=== PATIENT | male | born 1950 | race Caucasian/White ===

== ENCOUNTER → 2023-05-08 11:54 | Outpatient (CLI) | payer OTHER, SELFPAY ==
[2023-05-08 13:16] LABS: Appearance Urine UA CLEAR; Bilirubin Urine UA NEGATIVE (NEGATIVE); Color Urine UA ORANGE; Glucose Urine UA NEGATIVE (Negative); Ketones Urine UA TRACE (NEGATIVE); Leukocyte Esterase Urine UA NEGATIVE (NEGATIVE); Nitrite Urine UA NEGATIVE (Negative); Occult Blood Urine UA NEGATIVE (Negative); Protein Urine UA NEGATIVE (Negative); Specific Gravity Urine UA >=1.030 (1.000-1.035); Urobilinogen Urine UA 0.2 E.U./dL (0.2)
[2023-05-08 13:19] LABS: Add Manual Diff / Slide Review NO; Basophils Absolute Auto 0 /uL (0-100); Basophils Percent Auto 0.9 % (0-2); Eosinophils Absolute Auto 300 /uL (0-450); Eosinophils Percent Auto 6.2 % (2-4); Hemoglobin 15.8 g/dL (13.5-17.5); Lymphocytes Absolute Auto 1700 /uL (1100-4500); Lymphocytes Percent Auto 34.5 % (25-40); Mean Corpuscular HGB Conc 33.6 % (30-36); Mean Corpuscular Hemoglobin 33.3 PG (26-34); Monocytes Absolute Auto 400 /uL (0-900); Monocytes Percent Auto 8.7 % (3-14); Neutrophils Absolute Auto 2400 /uL (1500-7000); Neutrophils Percent Auto 49.7 % (50-75); Platelet Count 175 X10^3/uL (150-400); Red Blood Cell Count 4.75 X10^6/uL (4.5-5.9); Red Cell Distribution Width 13.7 % (11.6-14.8); White Blood Cell Count 4.8 X10^3/uL (4.5-11.0)
[2023-05-08 13:26] LABS: Bacteria Urine None Seen; Calcium Oxalate Crystals Urine Moderate; Culture Indicated Urine Cult Not Indicated; Mucus Urine 2+ (Negative); RBC Urine None Seen (0-5/HPF); Squamous Epithelial Cell Urine None Seen (0-5/HPF); WBC Urine None Seen (0-5/HPF)
[2023-05-08 13:42] LABS: BUN Creatinine Ratio 27.8 (6-22); Blood Urea Nitrogen 22 mg/dL (9-20); Calcium 9.3 mg/dL (8.4-10.2); Carbon Dioxide 29 mmol/L (22-32); Chloride 101 mmol/L (98-107); Estimated Glomerular Filt Rate > 60 mL/min (>60); Glucose 97 mg/dL (80-110); HEMOLYSIS < 15 (0-50); Potassium 4.2 mmol/L (3.4-5.1); Sodium 139 mmol/L (137-145)
[2023-05-08 13:45] LABS: Hemoglobin A1C% w Est Avg Glu 5.2 % (4.0-6.0)
== END ==
LOC: LAB 12:01
PROVIDERS: PCP Physician Assistant; Referring Provider Orthopaedic Surgery; Visit Provider Orthopaedic Surgery
DX: Z01.818 Encounter for other preprocedural examination (principal); R73.9 Hyperglycemia, unspecified; Z01.812 Encounter for preprocedural laboratory examination; N39.0 Urinary tract infection, site not specified
CPT/HCPCS: 36415; 80048; 81001; 83036; 85025; 93005; 93010

== ENCOUNTER 2023-05-29 11:15 | Day surgery (SDC) | payer OTHER, SELFPAY ==
[2023-05-21 12:41] VITALS: BMI 33.9
[2023-05-29] VITALS (8 sets, daily range): BP systolic 116–159; BP diastolic 76–97; PULSE 73–84; RESP 12–16; TEMP 35.6–36.4; O2SAT 93–100; BMI 33.9
[2023-05-29] MEDS: ACETAMINOPHEN 325 MG TABLET 1000 MG PO (12:30)
[2023-05-29] MEDS: LACTATED RINGERS 1,000 ML 42 ML IV ×2 (12:31→15:40)
[2023-05-29] MEDS: CELECOXIB 200 MG CAPSULE PO (12:31)
[2023-05-29] MEDS: VANCOMYCIN 1,000 MG/200 ML PIGGYBACK 200 MG IV (12:31)
--- NOTE | 2023-05-29 14:00 | DI.RAD.S_ITS ---
PROCEDURE: XR PELVIS 1-2V INDICATIONS: RIGHT INNER OP HIP TECHNIQUE: Single AP view of the pelvis and hip acquired. COMPARISON: [facility], CR, XR HIP W PEL IF DONE RT 2V, 05/29/2023, 16:39. FINDINGS: Bones: Status post right total hip arthroplasty. No acute hardware complication visualized on this single view. Surgical equipment project over the left hip and pelvis. Soft tissues: There are soft tissue changes of surgical procedure. IMPRESSION: Status post right total hip arthroplasty. No obvious hardware complication identified on this single AP view. Dictated by: Payam Ascencio M.D. on 05/29/2023 at 18:26 Approved by: Payam Ascencio M.D. on 05/29/2023 at 18:28
--- NOTE | 2023-05-29 14:10 | PM.PREOP ---
Pre-operative Note Interval Note History & Physical reviewed/Exam performed by Physician: Yes Changes to H&P: No
--- NOTE | 2023-05-29 14:27 | P.OP_ITS ---
Operative Date/Time/Diagnoses Date of procedure: 05/29/23 Time of procedure: 14:30 Pre-op diagnosis: Right hip OA Post-op diagnosis: same Procedure & Clinicians Procedure: Right total hip arthroplasty posterior approach Same procedure as scheduled: Yes Indications: The patient has had progressively worsening right hip pain with radiographic changes consistent with arthritis. Non-operative management has failed and the patient has requested total hip replacement. The risks, benefits and alternatives to surgery were discussed with the patient prior to proceeding. Risks discussed included, but were not limited to, failure to relieve pain, leg length discrepancy, dislocation, stiffness, infection, nerve damage, deep venous thrombosis, pulmonary embolism, stroke, coma, heart attack, permanent paralysis and , as well as the potential need for eventual revision of the prosthetic. Surgeon: [employer] Learning [employer] Teacher: Vinayak Mock Anesthesia Type: General and Spinal Operative Notes Findings: Severe right hip osteoarthritis, adequate stability, adequate bone Closure Type: primary Specimen(s): none sent Prosthetic devices, grafts, tissues, transplants, or devices: [employer] R3 58 mm, neutral poly liner, polar size 4 standard offset with collar, 36 x +0 cobalt head,one 6.5 mm screw Estimated Blood Loss (mL): 250 Blood products transfused: none Procedure in detail: The patient was seen in the pre-operative area, where the patient identified the right hip as the operative site and this was marked with my initials. The patient received pre-operative antibiotics and was taken to the operating room and placed on the operative table in the left lateral decubitus position after satisfactory anesthesia. A machine shop helper out was performed. The right leg was prepared from the ankle to the iliac crest with ChloroPrep in the usual fashion and draped through sterile drapes. The hip was approached through an approximately 20 cm incision centered over the greater trochanter and curving gently posteriorly as it went proximally. This was carried sharply to the fascia ryan, which was divided and retracted with a self retaining retractor. The trochanteric bursa was excised with care being taken to avoid the sciatic nerve, which was identified and protected throughout the case. The short external rotators were incised and the capsulomuscular flap was raised and tagged for later repair. The hip was dislocated, and a femoral neck osteotomy performed approximately 15 mm above the lesser trochanter. Retractors were placed around the femur. The canal was opened with a box cutting osteotome, followed by a T handled reamer and a lateralizing reamer. The chili pepper broach was then used, followed by sequential broaching until there was good stability of the broach in the femur. Retractors were placed to expose the acetabulum. The labrum and central soft tissues were removed. Reaming was performed initially going up in 2 mm increments, then 1 mm increments until good bite was obtained with an odd sized reamer. The cup 1 mm larger than the last reamer was then inserted using the appropriate anteversion guides. It was further stabilized with a single screw. A trial neutral liner was placed. The broach was placed in the canal. A trial head and neck were then placed and the hip relocated and checked for leg length and stability. An intraoperative film confirmed the component position and no evidence of fracture. The patient was stable in the position of sleep, of squatting, and could be put through a range of motion with 45 degrees internal rotation without dislocation. At 90 degrees flexion, internal rotation to 70? was possible before dislocation. This was felt to be satisfactory and the appropriate components were opened, and the trials were removed. The acetabular liner was impacted into position. The final stem was then impacted into the prepared femoral canal. A brief Betadine soak was performed while trialing with head options. The hip was meticulously irrigated with normal saline. Finally the femoral head was impacted onto the stem. The acetabulum was cleared of all material and the hip relocated one final time. The capsulomuscular flap was then repaired to the greater trochanter though an awl hole using the tag sutures. The short external rotators were repaired with a nonabsorbable suture. The fascia ryan was closed with Vicryl. The subcutaneous layer was closed with barbed sutures and SteriStrips. An Aquacel Ag dressing was applied and the patient was taken to recovery having tolerated the procedure well. Complications: none Post-operative Condition: stable Disposition: Acute Care Plan for aftercare: The patient will be maintained on a standard total hip replacement protocol with weight bearing as tolerated and posterior hip precautions. The patient will receive Aspirin and sequential compression devices for DVT prophylaxis. The patient will be discharged home when safe for the home environment.
[2023-05-29] MEDS: CEFAZOLIN 2 GM/100 ML PREMIX 100 ML IV ×2 (14:50→22:08)
--- NOTE | 2023-05-29 15:09 | SUR.OPER ---
Lateral on padded OR bed. Gel axillary roll. Arms secured on padded armboard with pillow supporting top arm. Padded hip positioner braces x4 - anterior and posterior chest and pelvis. Additional gel pad used anterior pelvis. Gel pad under bottom leg from knee to foot and secured with tape over sheet.
[2023-05-29] MEDS: BUPIVACAINE LIPOSOME 266 MG/20 ML VIAL INJ (15:22)
[2023-05-29] MEDS: BUPIVACAINE 0.5% (PF) 30 ML, EPINEPHrine 0.15 MG INJ (15:23)
--- NOTE | 2023-05-29 17:00 | DI.RAD.S_ITS ---
PROCEDURE: XR HIP W PEL IF DONE RT 2V INDICATIONS: RIGHT TOTAL HIP TECHNIQUE: AP pelvis with lateral view(s) of the right hip(s). COMPARISON: None. FINDINGS: Bones: Expected immediate appearance of total right hip arthroplasty. No evidence of hardware failure or loosening. No fractures or dislocations. Pelvic ring appears intact. No suspicious bony lesions. Severe degenerative arthritis of the left hip. Question underlying congenitally shallow left acetabulum. Soft tissues: The visualized bowel gas pattern is normal. No suspicious soft tissue calcifications. IMPRESSION: Expected immediate postoperative appearance, status post total right hip arthroplasty. Severe degenerative arthritis of the left hip. Question underlying congenitally shallow left acetabulum. Dictated by: Andres Simpson M.D. on 05/29/2023 at 19:26 Approved by: Andres Simpson M.D. on 05/29/2023 at 19:27
[2023-05-29] MEDS: ASPIRIN EC 81 MG TABLET PO (20:56)
[2023-05-29] MEDS: DOCUSATE 100 MG CAPSULE PO (20:57)
[2023-05-29] MEDS: ACETAMINOPHEN 325 MG TABLET 650 MG PO (20:57)
[2023-05-29] MEDS: IBUPROFEN 400 MG TABLET PO (20:57)
[2023-05-29] MEDS: LACTATED RINGERS 1,000 ML 100 ML IV (22:07)
--- NOTE | 2023-05-29 23:16 | PC.NURSE ---
Addendum entered by Robson Guo R.N. 05/30/23 07:33: Patient voided 200ml, post void bladder scan 490ml. Spoke with Apolonia PAC, ordered additional straight cath. Verbalized to oncgeneva hurd RN. Original Note: Patient has no urge to urinate, bladder scan showing 646ml. Tried to stand at edge of bed for trial void, patient's R knee continuing to internally rotate and patient unable to stand up, stating 'feels like it's just not working'. Educated pt on post op precautions. Straight catheter completed.
[2023-05-30 00:11] VITALS: BP 108/64; PULSE 74; RESP 17; TEMP 36.3; O2SAT 92
[2023-05-30 03:26] VITALS: BP 110/65; PULSE 85; RESP 17; TEMP 36.2; O2SAT 97
[2023-05-30 05:11] LABS: Hematocrit 37.8 % (41-53); Hemoglobin 12.7 g/dL (13.5-17.5)
[2023-05-30] MEDS: CEFAZOLIN 2 GM/100 ML PREMIX 100 ML IV (06:38)
[2023-05-30] MEDS: IBUPROFEN 400 MG TABLET PO ×2 (06:50→11:50)
[2023-05-30] MEDS: ACETAMINOPHEN 325 MG TABLET 650 MG PO ×2 (06:50→13:36)
[2023-05-30 08:29] VITALS: BP 99/58; PULSE 64; RESP 18; TEMP 36.9; O2SAT 93
[2023-05-30] MEDS: ASPIRIN EC 81 MG TABLET PO (08:51)
[2023-05-30] MEDS: ATORVASTATIN 20 MG TABLET PO (08:51)
[2023-05-30] MEDS: FLUoxetine 10 MG CAPSULE PO (08:51)
[2023-05-30] MEDS: DOCUSATE 100 MG CAPSULE PO (08:51)
[2023-05-30] MEDS: OXYCODONE IR 5 MG TABLET PO (09:14)
--- NOTE | 2023-05-30 09:14 | PC.NURSE ---
straight cath cancelled, pt was able to void 500cc.
--- NOTE | 2023-05-30 10:00 | PT.IIE ---
Current Diagnoses Unilateral primary osteoarthritis, right hip (05/29/23) Surgery Performed Operation Date: 05/29/23 13:45 Actual Procedures p Total Hip Arthroplasty - posterior(Right) - Kaye Morse MD Surgical History (Last Updated 05/21/23 @ 13:07 by Sarah Tanner, RN) Hx of tonsillectomy Medical History (Last Reviewed 05/29/23 @ 12:16 by Venecia Bahena, DEBRA) Depression GERD (gastroesophageal reflux disease) HLD (hyperlipidemia) Osteoarthritis Physical Therapy Inpatient Evaluation/Re-Eval M1 PT/OT-IP Prior Functional Status Start: 05/30/23 12:09 Freq: NEEDED Status: Active Protocol: Document 05/30/23 10:00 AB (Rec: 05/30/23 12:36 AB [id number]) Medical Review Prior Functional Status Medical History Reviewed Yes Communication able to make needs known Mobility and Gait pt stated that he was independent with all mobilities and ambulation without AD Activities of Daily Living and IADL's per OT note: Pt states needing increased time for ADL and IADL needs. Social History Household Members none Living Arrangements House Number of Floors (Floors) One Floor Number of Stairs To Enter/Railing? pt plans to go to his family's house: home set up is regarding pt's family house 5 steps with right rail ascending Home Environment Standard Height Toilet,Walk in Shower,Tub/Shower Home Equipment Front Wheel Walker,Straight Cane,Raised Toilet Seat Without Armrests,Shower Seat without Backrest Additional Social History Comment pt stated that his BRAD and sister will be able to asisst him M2 PT-IP Current Condition Start: 05/30/23 12:09 Freq: NEEDED Status: Active Protocol: Document 05/30/23 10:00 AB (Rec: 05/30/23 12:36 AB [id number]) Physical Therapy Current Condition Current Condition Evaluation Date 05/30/23 Treatment Diagnosis s/p R ARIA posterior approach; difficulty in walking Onset Date 05/29/23 M3 PT-IP Subjective Start: 05/30/23 12:09 Freq: NEEDED Status: Active Protocol: Document 05/30/23 10:00 AB (Rec: 05/30/23 12:36 AB [id number]) Subjective Physical Therapy Visit Type Type Initial Evaluation Visit Start Time 10:00 Visit Stop Time 11:20 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 0 Physical Therapy Visit Comments Patient Comments agreeable to do PT Therapy Pain Assessment Pain When Pain Assessed At Rest Pain Present Pain Present Pain Reported Location Right Hip Intensity 1 Scale Used Numeric (0 - 10) Pain Management Techniques Distraction,Modification of Treatment,Re-positioning, Timing of Activity with Medications M4 PT-IP Mobility and Gait Start: 05/30/23 12:09 Freq: NEEDED Status: Active Protocol: Document 05/30/23 10:00 AB (Rec: 05/30/23 12:36 AB [id number]) PT-Bed Mobility Assessment Supine to Sit Supine to Sit Standby Assistance PT-Transfer Assessment Sit to and From Stand Sit to and from Stand Contact Guard Assistance, Minimal Assistance,1 Person Assistance,Use of Upper Extremities Equipment Transfer Assistive Device Gait Belt,Front Wheeled Walker Orthotic/Prosthetic Devices or Brace: No Transfers Transfer Destination Bed Transfer Technique ambulated Transfer Ability Level of Assist Contact Guard Assistance, Minimal Assistance,1 Person Assistance,Use of Upper Extremities Comments Mobility Comments pt supine in bed and agreeable to do PT. obtained PLOF and home set up. educated pt on R posterior hip precautions. post-op folder provided and reviewed contents with pt. reviewed precautions again and pt was able to recall. BP: 112/68 pt completed supine to sit SBA and cues for safety. able to sit on EOB SBA. completed sit to stand min A and max cues. instructed pt to sit back down . educated on sit<>stand techniques. pt completed sit to stand again CGA. pt ambulated towards the chair ~ 12 ft using FWW with initial min A but able to complete with only CGA. cued for safety. pt presents with an antalgic gait and pt can be impulsive. pt sat on the chair. educated regarding car transfers. pt agreed to do stairs. completed sit to stand CGA and ambulated towards the stairs using fWW CGA ~ 150 ft. stair climbing training. educated pt on how to do stair climbing. pt completed up/ down step holding on to R rail with B hands CGA and cues. repeated again without cues needed. assisted pt back to the room. with inconsistent with adhereing to his hip precautions. completed sit to stand and needs cues to position RLE forward prior to standing and sitting. ambulated to the chair using FWW CGA. educated pt again regarding hip precautions during mobility. pt instructed to transfer from chair to EOB and back and completed CGA but continues to need cues and inconsistent with carryover with hip precautions. pt sat back on the chair. caregiver training set up for this afternoon at 1pm. Left pt in room with OT. Gait Assessment Gait Gait Assistance Required: Contact Guard Assist,Minimum Assistance Distance (Feet) 150 Able to Maintain Weight Bearing Status Yes During Gait Assistive Devices Assistive Device Gait Belt,Front Wheeled Walker Orthotic/Prosthetic Devices or Brace: No Gait Deviations General Gait Pattern Antalgic,Decreased Stride Length,Decreased Feet Clearance,Step-to Gait Factors Limiting Gait Function Factors Limiting Gait Function Decreased Activity Tolerance, Decreased Strength,Limited Range of Motion,Pain,Poor Balance,Poor Safety Awareness Stair Climbing Assessment Evaluation Level of Assist On Stairs Contact Guard Assistance Devices Stair Climbing Assistive Devices Right Railing Technique/Endurance Stair Climbing Direction Ascend and Descend Stair Climbing Technique Step to Step Number of Steps Climbed 3 Query Text: Stair Climbing Set # Repetitions (reps) 2 PT-Balance Assessment Sitting Balance and Reactions Static Sitting Balance Ability Normal Dynamic Sitting Balance Ability Good Standing Balance and Reactions Static Standing Balance Ability Fair Dynamic Standing Balance Ability Fair Device Used FWW M5 PT-IP Objective Assessments Start: 05/30/23 12:09 Freq: NEEDED Status: Active Protocol: Document 05/30/23 10:00 AB (Rec: 05/30/23 12:36 AB [id number]) Orientation Orientation/Cognition Level of Alertness Alert Orientation Name,Place,Situation Language Function Ability No Deficits Noted Safety Awareness Decreased Safety Awareness Memory Description No Deficits Noted Gross Range of Motion Lower Extremity ROM Assessment Within Functional Limits Strength Lower Extremity Strength Assessment Right Impaired Hip 3+/5 Knee 4-/5 Sensation Assessment Sensation Gross Sensation WNL Muscle Tone Muscle Tone WNL Yes M6 PT-IP Treatment Start: 05/30/23 12:09 Freq: NEEDED Status: Active Protocol: Document 05/30/23 10:00 AB (Rec: 05/30/23 12:36 AB [id number]) Physical Therapy Treatment Education Education Provided Precautions,Weight Bearing Status,Post-Op Packet,Safety M7 PT-IP Assessment and Plan Start: 05/30/23 12:09 Freq: NEEDED Status: Active Protocol: Document 05/30/23 10:00 AB (Rec: 05/30/23 12:36 AB [id number]) PT Summary Assessment and Plan Potential Rehabilitation Potential Fair Status of Condition at Evaluation Stable Summary Impairments Pain,ROM,Strength,Balance, Coordination,Sensation,Tone, Cognition,Bed Mobility, Transfers,Gait,Activity Tolerance Assessment Summary pt is a 72 y/o M s/p R ARIA posterior approach POD 1. pt has R posterior hip precautions and is WBAT. pt requiring CGA with mobility using FWW but needs cues for carryover of his hip precautions. Caregiver training set up for this afternoon at 1 pm. FWW was dispensed by OT to pt per pt's request. will continue to assess progress. Goals Bed Mobility Goal Independent Transfer Goal Independent,Front Wheeled Walker Gait Goal Independent,Front Wheel Walker Gait Distance 200 Other Goals improve transfers, ambulation using LRAD >300 ft mod I up/down 5 steps R rail ascending mod I Days to Meet Goals 5 Frequency of Treatment Frequency Of Treatment Twice a Day Treatment Plan Physical Therapy Treatment Plan Bed Mobility Training,Transfer Training,Gait Training, Therapeutic Exercise,Balance Retraining,Post Op Education, Discharge Planning,Hot or Cold Pack,Neuromuscular Re-ed, Coordination Retraining,Manual Therapy Precautions Posterior Hip Precautions No Hip Flexion > 90 degrees,No Hip Internal Rotation,No Hip Adduction Weight Bearing Status Weight Bearing Status Weight Bear as Tolerated Allowed Weight Bearing Amount (enter % RLE WBAT or #) (%) Recommendations To Nursing Amount of Assist Needed 1 Person Assist Discharge Recommendations PT Discharge Recommendations Home with Assistance, Outpatient PT Transportation Needs at Discharge Private Vehicle
--- NOTE | 2023-05-30 11:30 | OT.IP.EVAL ---
Current Diagnoses Unilateral primary osteoarthritis, right hip (05/29/23) Surgery Performed Operation Date: 05/29/23 13:45 Actual Procedures p Total Hip Arthroplasty - posterior(Right) - Kaye Morse MD Past Medical History (Last Reviewed 05/29/23 @ 12:16 by Venecia Bahena, DEBRA) Depression GERD (gastroesophageal reflux disease) HLD (hyperlipidemia) Osteoarthritis Surgical History (Last Updated 05/21/23 @ 13:07 by Sarah Tanner RN) Hx of tonsillectomy Occupational Therapy Inpatient Evaluation/Re-Eval M1 PT/OT-IP Prior Functional Status Start: 05/30/23 11:35 Freq: NEEDED Status: Active Protocol: Document 05/30/23 11:46 [facility] (Rec: 05/30/23 12:06 [facility] [id number]) Medical Review Prior Functional Status Communication Independent Mobility and Gait Pt states does not use a device to walk with. Activities of Daily Living and IADL's Pt states needing increased time for ADL and IADL needs. Prior Functional Level (Other details) Pt to stay at his family's house initially and have assist. Pt's house information is based on his family's house where he will be staying at. Social History Household Members none Living Arrangements House Number of Floors (Floors) One Floor Number of Stairs To Enter/Railing? 5 steps with right rail going up. Home Environment Standard Height Toilet,Walk in Shower,Tub/Shower Home Equipment Front Wheel Walker,Straight Cane,Raised Toilet Seat Without Armrests,Shower Seat without Backrest Additional Social History Comment Pt has the counter on the right to assist to stand as well as the RTS. M2 OT-IP Current Condition Start: 05/30/23 11:35 Freq: Status: Active Protocol: Document 05/30/23 11:46 [facility] (Rec: 05/30/23 12:06 [facility] [id number]) Occupational Therapy Current Condition Current Condition Evaluation Date 05/30/23 Treatment Diagnosis S/P R ARIA , posterior approach Diagnosis Onset Date 05/29/23 M3 OT- IP Subjective and Pain Start: 05/30/23 11:35 Freq: Status: Active Protocol: Document 05/30/23 11:46 [facility] (Rec: 05/30/23 12:06 [facility] [id number]) OT- Subjective Occupational Therapy Visit Type Type Initial Evaluation Visit Start Time 10:00 Visit Stop Time 11:30 Occupational Therapy Visit Comments Patient Comments Pt agreed to get up and work with OT and PT for evals. Patient/Caregiver Goals TO go home. OT Pain Assessment Pain When Pain Assessed At Rest Pain Present Pain Present Denied Pain M4 OT- IP ADL's Start: 05/30/23 11:35 Freq: Status: Active Protocol: Document 05/30/23 11:46 [facility] (Rec: 05/30/23 12:06 [facility] [id number]) OT GXA-Mmxo-Swragmi General Evaluation Self-Feeding Ability Independent OT ADL-Grooming General Evaluation Areas Needing Assistance Retrieving/Set-up of Grooming Items OT ADL-Oral Care Comments Oral Care Comments Not performed. OT ADL-Dressing General Eval Upper Body Dressing Ability Minimal Assistance Lower Body Dressing Ability Maximum Assistance Areas Needing Assistance Button-Up Shirt/Blouse,Socks, Shoes Comments OT Dressing Comments Pt needing assist to help pull shirt around over his shoulders. Pt will benefit from use of packing and stamping machine operator and sock aid to assist for LB dressing needs. Pt suggested to pickle solution maker LB dressing equipment. OT ADL-Toileting Comments OT Toileting Comments Pt not having to go. Educated best to stand to wipe and use of wet wipes to assist with hygiene needs. In addition may be easier to use the urinal at night versus get up to the bathroom. If getting up to the bathroom to have someone present to assist him. OT ADL-Bathing Comments OT Bathing Comments Not performed. Suggested pt have assist and get a HHSP and long handled brush. M5 OT- IP IADL's Start: 05/30/23 11:35 Freq: Status: Active Protocol: Document 05/30/23 11:46 [facility] (Rec: 05/30/23 12:06 [facility] [id number]) OT-Instrumental Activities of Daily Living Deficits IADL Deficits Identified Deficits Home Safety Awareness Awareness of Need for Assistance at Home Good Awareness Ability to Problem Solve Emergency Able to Problem Solve Situations Medication Management Medication Management Comments Pt is a bit forgetful on eval and would be best to have assist. Money Management Money Management Comments At this time pt would benefit at least from supervision. Meal Preparation Meal Preparation Caregiver Provides Assist Retail Leasing Agent Retail Leasing Agent Caregiver Provides Assist M6 OT- IP Functional Cognition Start: 05/30/23 11:35 Freq: Status: Active Protocol: Document 05/30/23 11:46 [facility] (Rec: 05/30/23 12:06 [facility] [id number]) Cognitive Factors Limiting Selfcare Function Cognitive Ability Level of Alertness Alert Patient Orientation Name,Place,Situation Attention Span Ability Capable of Focused Attention, Capable of Sustained Attention Ability to Follow Commands Able to Follow One Step Commands with Increased Time, Able to Follow One Step Commands with Repetition Memory Description Short Term Impaired Safety Awareness Decreased Recall of Precautions,Decreased Ability to Apply Precautions Cognitive Comments Cognitive Assessment Comments Pt needing repetition to be able to recall his hip precautions and incorporated during ADL and mobility needs. Pt is needing MAXA for hand placement and what to do with his RLE especially during transitions. Pt encouraged to keep reading through his hip surgery folder. Pt to have caregiver training with PT at 1pm with his family. OT- Vision and Hearing OT- Hearing Assessment OT- Hearing Assessment WFL OT- Vision Assessment Visual Acuity Glasses For Reading Visual Attentiveness WFL Occular Pursuits WFL M7 OT- IP Mobility and Balance Start: 05/30/23 11:35 Freq: Status: Active Protocol: Document 05/30/23 11:46 [facility] (Rec: 05/30/23 12:06 [facility] [id number]) OT-Transfer Assessment Sit to and From Stand Sit to and from Stand Standby Assistance,Contact Guard Assistance,Minimal Assistance Transfers Transfer Ability Contact Guard Assistance Technique Transfer Destination Bed,Car,Wheelchair Transfer Technique Stand Step Pivot Devices Transfer Assistive Devices Gait Belt,Front Wheeled Walker Comments Mobility Comments Pt needing from close SBA to LULU to stand depending on height of surface standing from. Reminders to slide his RLE forwards and reach back with his hands to help lower himself down.Able to go over ways for pt to get into the car to best follow his hip precautions. OT- Balance Assessment Sitting Balance and Reactions Static Sitting Balance Ability Normal Dynamic Sitting Balance Ability Good Standing Balance and Reactions Static Standing Balance Ability Good Dynamic Standing Balance Ability Fair M8 OT- IP Objective Assessments Start: 05/30/23 11:35 Freq: Status: Active Protocol: Document 05/30/23 11:46 [facility] (Rec: 05/30/23 12:06 [facility] [id number]) OT Gross Range of Motion Upper Extremity Range of Motion Assessment Within Functional Limits OT Strength Upper Extremity Strength Assessment Within Functional Limits M9 OT- IP Assessment and Plan Start: 05/30/23 11:35 Freq: Status: Active Protocol: Document 05/30/23 11:46 [facility] (Rec: 05/30/23 12:06 [facility] [id number]) OT Summary Assessment and Plan Potential Rehabilitation Potential Good Analytic Complexity at Evaluation Low Summary OT Impairments Balance,Functional Cognition, Functional Mobility,Dressing, Toileting,Bathing,Toilet Transfers,Shower Transfers Progress Towards Goals Progressing Toward Goals,Slow Progress due to Cognition Assessment Summary Pt low complexity and main barriers are having difficulty to recall and follow his hip precautions during mobility and ADL needs. Pt has been issued a FWW as pt's is too low for him to use. Pt also suggested to get LB dressing equipment, long handled sponge and HHSP for home use. Pt to stay with his family and attend outpt PT. Goals Dressing Goal Standby Assistance,Long Handled Shoe Horn,Salt Operator,Sock Aid Toileting Goal Independent Bathing Goal Standby Assistance Toilet Transfer Goal Independent Shower Transfer Goal Standby Assistance Days to Meet Goals 7 Frequency of Treatment Frequency Of Treatment Once a Day Treatment Plan OT Treatment Plan ADL Training,Functional Cognition Training,Functional Mobility,Patient/Family Education,Discharge Planning Discharge Recommendations OT Discharge Recommendations Home with 20/11 Assist Available,Outpatient PT Other Discharge Recommendations / assist mainly safety awareness for his hip precautions. Transportation Needs at Discharge Private Vehicle
[2023-05-30 12:30] VITALS: BP 117/68
--- NOTE | 2023-05-30 13:10 | PT.IPTN ---
Current Diagnoses Unilateral primary osteoarthritis, right hip (05/29/23) Surgery Performed Operation Date: 05/29/23 13:45 Actual Procedures p Total Hip Arthroplasty - posterior(Right) - Kaye Morse MD Physical Therapy Treatment Note M2 PT-IP Current Condition Start: 05/30/23 12:09 Freq: NEEDED Status: Active Protocol: Document 05/30/23 10:00 [facility] (Rec: 05/30/23 12:36 [facility] [id number]) Physical Therapy Current Condition Current Condition Evaluation Date 05/30/23 Treatment Diagnosis s/p R ARIA posterior approach; difficulty in walking Onset Date 05/29/23 M3 PT-IP Subjective Start: 05/30/23 12:09 Freq: NEEDED Status: Active Protocol: Document 05/30/23 13:10 [facility] (Rec: 05/30/23 14:37 [facility] [id number]) Subjective Physical Therapy Visit Type Type Treatment Note Visit Start Time 13:10 Visit Stop Time 14:15 Number of TRAINING REPRESENTATIVE Visits 0 Therapy Pain Assessment Pain When Pain Assessed At Rest Pain Present Pain Present Pain Reported Location Right Hip Intensity 2 Scale Used Numeric (0 - 10) Pain Management Techniques Distraction,Modification of Treatment,Re-positioning, Timing of Activity with Medications M4 PT-IP Mobility and Gait Start: 05/30/23 12:09 Freq: NEEDED Status: Active Protocol: Document 05/30/23 13:10 [facility] (Rec: 05/30/23 14:37 [facility] [id number]) PT-Bed Mobility Assessment Supine to Sit Supine to Sit Standby Assistance Sit to Supine Sit to Supine Standby Assistance PT-Transfer Assessment Sit to and From Stand Sit to and from Stand Contact Guard Assistance,1 Person Assistance,Use of Upper Extremities Equipment Transfer Assistive Device Gait Belt,Front Wheeled Walker Orthotic/Prosthetic Devices or Brace: No Transfers Transfer Destination Bed,Chair Transfer Technique ambulated Transfer Ability Level of Assist Contact Guard Assistance,1 Person Assistance,Use of Upper Extremities Comments Mobility Comments pt sitting on the chair. family just arrived. Pt's brother will be the primary caregiver to pt and agreed to do caregiver training. reviewed R hip posterior precautions with pt and pt only recalled 2/3. educated pt and family regarding pt's posterior hip precautions. educated pt's brother on how to use safety belt and how to assist pt. brother was able to put safety belt on and assisted pt with sit to stand. educated pt's brother on how and when to cue pt for safety and for hip precautions. pt ambulated to the EOB using FWW CGA with brother assisting pt . pt completed sit<>supine SBA. cued for techniques. pt agreed to do stairs. pt's brother assist pt again with sit to stand from EOB and ambulation in the hallway using FWW ~ 100 ft CGA. stair climbing training. educated family on how to assist pt with stair climbing. pt's brother assisted pt with up/down steps holding on to R rail with B hands min A and cued for safety. pt is impulsive and need cues. family is aware. assisted pt back to his room. pt ambulated from the w/c to the chair using FWW with his brother assisting hime. positioned pt on the chair. educated pt and family with regards to car transfers. family asking about HHPT and stated that the doctor's office stated that they will arrange homehealth for him. informed case picker and will talked to pt. pt and family without further concerns. Gait Assessment Gait Gait Assistance Required: Contact Guard Assist Distance (Feet) 100 Able to Maintain Weight Bearing Status Yes During Gait Assistive Devices Assistive Device Gait Belt,Front Wheeled Walker Orthotic/Prosthetic Devices or Brace: No Gait Deviations General Gait Pattern Antalgic,Decreased Stride Length,Decreased Feet Clearance Factors Limiting Gait Function Factors Limiting Gait Function Decreased Activity Tolerance, Decreased Strength,Pain,Poor Balance,Poor Safety Awareness M5 PT-IP Objective Assessments Start: 05/30/23 12:09 Freq: NEEDED Status: Active Protocol: Document 05/30/23 10:00 [facility] (Rec: 05/30/23 12:36 [facility] [id number]) Orientation Orientation/Cognition Level of Alertness Alert Orientation Name,Place,Situation Language Function Ability No Deficits Noted Safety Awareness Decreased Safety Awareness Memory Description No Deficits Noted Gross Range of Motion Lower Extremity ROM Assessment Within Functional Limits Strength Lower Extremity Strength Assessment Right Impaired Hip 3+/5 Knee 4-/5 Sensation Assessment Sensation Gross Sensation WNL Muscle Tone Muscle Tone WNL Yes M6 PT-IP Treatment Start: 05/30/23 12:09 Freq: NEEDED Status: Active Protocol: Document 05/30/23 13:10 [facility] (Rec: 05/30/23 14:37 [facility] [id number]) Physical Therapy Treatment Education Education Provided Precautions,Weight Bearing Status,Safety M7 PT-IP Assessment and Plan Start: 05/30/23 12:09 Freq: NEEDED Status: Active Protocol: Document 05/30/23 13:10 [facility] (Rec: 05/30/23 14:37 [facility] [id number]) PT Summary Assessment and Plan Potential Rehabilitation Potential Good Summary Impairments Pain,ROM,Strength,Balance, Coordination,Sensation,Tone, Cognition,Bed Mobility, Transfers,Gait,Activity Tolerance Progress Towards Goals Progressing Toward Goals Assessment Summary Caregiver training conducted and family is able to assist pt safely. pt may go home when medically stable. pt has outpt PT set up but is not after 2 weeks. informed family to call outpt PT and to move the appointment sooner. Goals Bed Mobility Goal Independent Transfer Goal Independent,Front Wheeled Walker Gait Goal Independent,Front Wheel Walker Gait Distance 200 Other Goals improve transfers, ambulation using LRAD >300 ft mod I up/down 5 steps R rail ascending mod I Days to Meet Goals 5 Frequency of Treatment Frequency Of Treatment Twice a Day Treatment Plan Physical Therapy Treatment Plan Bed Mobility Training,Transfer Training,Gait Training, Therapeutic Exercise,Balance Retraining,Post Op Education, Discharge Planning,Hot or Cold Pack,Neuromuscular Re-ed, Coordination Retraining,Manual Therapy Precautions Posterior Hip Precautions No Hip Flexion > 90 degrees,No Hip Internal Rotation,No Hip Adduction Weight Bearing Status Weight Bearing Status Weight Bear as Tolerated Allowed Weight Bearing Amount (enter % RLE WBAT or #) (%) Recommendations To Nursing Amount of Assist Needed 1 Person Assist Discharge Recommendations PT Discharge Recommendations Home with Assistance, Outpatient PT Transportation Needs at Discharge Private Vehicle
--- NOTE | 2023-05-30 14:05 | OT.IP.TRT ---
Current Diagnoses Unilateral primary osteoarthritis, right hip (05/29/23) Surgery Performed Operation Date: 05/29/23 13:45 Actual Procedures p Total Hip Arthroplasty - posterior(Right) - Kaye Morse MD Occupational Therapy Treatment Note M2 OT-IP Current Condition Start: 05/30/23 11:35 Freq: Status: Active Protocol: Document 05/30/23 11:46 [facility] (Rec: 05/30/23 12:06 [facility] [id number]) Occupational Therapy Current Condition Current Condition Evaluation Date 05/30/23 Treatment Diagnosis S/P R ARIA , posterior approach Diagnosis Onset Date 05/29/23 M3 OT- IP Subjective and Pain Start: 05/30/23 11:35 Freq: Status: Active Protocol: Document 05/30/23 14:23 [facility] (Rec: 05/30/23 14:29 [facility] [id number]) OT- Subjective Occupational Therapy Visit Type Type Treatment Note Visit Start Time 14:05 Visit Stop Time 14:22 Occupational Therapy Visit Comments Patient Comments Pt's family present for caregiver training. Pt seen a second time to go over needs for the pt. Patient/Caregiver Goals To get better. OT Pain Assessment Pain When Pain Assessed During Mobility Pain Present Pain Present Pain Reported M4 OT- IP ADL's Start: 05/30/23 11:35 Freq: Status: Active Protocol: Document 05/30/23 14:23 [facility] (Rec: 05/30/23 14:29 [facility] [id number]) OT ADL-Dressing Comments OT Dressing Comments Educated pt's family to get LB dressing equipment for pt to use. OT ADL-Toileting Comments OT Toileting Comments Spoke of use of urinal at night and also to call for assist. OT ADL-Bathing Comments OT Bathing Comments Pt's brother states they have a tub/shower as pt states earlier has a walk in shower. Pt's brother states they had a tub bench at home to use. [facility] addition [facility] to get for [facility] pt to use. M5 OT- IP IADL's Start: 05/30/23 11:35 Freq: Status: Active Protocol: Document 05/30/23 11:46 [facility] (Rec: 05/30/23 12:06 [facility] [id number]) OT-Instrumental Activities of Daily Living Deficits IADL Deficits Identified Deficits Home Safety Awareness Awareness of Need for Assistance at Home Good Awareness Ability to Problem Solve Emergency Able to Problem Solve Situations Medication Management Medication Management Comments Pt is a bit forgetful on eval and would be best to have assist. Money Management Money Management Comments At this time pt would benefit at least from supervision. Meal Preparation Meal Preparation Caregiver Provides Assist Property Technician Property Technician Caregiver Provides Assist M6 OT- IP Functional Cognition Start: 05/30/23 11:35 Freq: Status: Active Protocol: Document 05/30/23 11:46 [facility] (Rec: 05/30/23 12:06 [facility] [id number]) Cognitive Factors Limiting Selfcare Function Cognitive Ability Level of Alertness Alert Patient Orientation Name,Place,Situation Attention Span Ability Capable of Focused Attention, Capable of Sustained Attention Ability to Follow Commands Able to Follow One Step Commands with Increased Time, Able to Follow One Step Commands with Repetition Memory Description Short Term Impaired Safety Awareness Decreased Recall of Precautions,Decreased Ability to Apply Precautions Cognitive Comments Cognitive Assessment Comments Pt needing repetition to be able to recall his hip precautions and incorporated during ADL and mobility needs. Pt is needing MAXA for hand placement and what to do with his RLE especially during transitions. Pt encouraged to keep reading through his hip surgery folder. Pt to have caregiver training with PT at 1pm with his family. OT- Vision and Hearing OT- Hearing Assessment OT- Hearing Assessment WFL OT- Vision Assessment Visual Acuity Glasses For Reading Visual Attentiveness WFL Occular Pursuits WFL M8 OT- IP Objective Assessments Start: 05/30/23 11:35 Freq: Status: Active Protocol: Document 05/30/23 11:46 [facility] (Rec: 05/30/23 12:06 [facility] [id number]) OT Gross Range of Motion Upper Extremity Range of Motion Assessment Within Functional Limits OT Strength Upper Extremity Strength Assessment Within Functional Limits M9 OT- IP Assessment and Plan Start: 05/30/23 11:35 Freq: Status: Active Protocol: Document 05/30/23 14:23 [facility] (Rec: 05/30/23 14:29 [facility] [id number]) OT Summary Assessment and Plan Potential Rehabilitation Potential Good Analytic Complexity at Evaluation Low Summary OT Impairments Balance,Functional Cognition, Functional Mobility,Dressing, Toileting,Bathing,Toilet Transfers,Shower Transfers Progress Towards Goals Progressing Toward Goals Assessment Summary Pt continues to need safety cues fo hip precautions needs. Able to clarify equipment at pt's brother's house and that they have a tub/shower and also have a tub bench that can be used with the pt. Pt's family looking to get LB dressing equipment for the pt. Pt to go home to his brother's house with 24/ avaiable assist. Goals Dressing Goal Independent Toileting Goal Independent Bathing Goal Independent Toilet Transfer Goal Independent Shower Transfer Goal Independent Days to Meet Goals 15 Frequency of Treatment Frequency Of Treatment Twice a Day Treatment Plan OT Treatment Plan ADL Training,Functional Cognition Training,Functional Mobility,Patient/Family Education,Discharge Planning Discharge Recommendations OT Discharge Recommendations Home with 24/ Assist Available,Outpatient PT Other Discharge Recommendations / assist mainly safety awareness for his hip precautions. Home Equipment Needs HHSP, LB dressing equipment Transportation Needs at Discharge Private Vehicle
--- NOTE | 2023-05-30 15:16 | CM.DANOTE ---
DCP Assessment Note Pt is a 72yo M here following planned right hip surg with Dr. Morse on 05.29.23. PCP Rashida Rajan [facility] and self pay CPR INSTRUCTOR reviewed EMR. Per ortho PA, pt to dc today pending movement with therapy team. PT asked for walker for home for pt, CPR INSTRUCTOR placed walker order. Per PT, pt inquired about HH services. Per PT/OT, pt not considered home bound at this time and their recommendations are home with assistance and OP follow up. Per PT, pt will be staying with family during recovery process. CPR INSTRUCTOR entered room and introduced self and role. Pt accompanied by brother Diego, Sister Ayala, and BRAD at bedside. Pt reports he's going to stay with his brother Diego at dc and other brother Will coming to stay with them as well. Pt normally lives alone. Pt reports being indep/driving at baseline. Brother Diego reports feeling confident in ability to support at home. Pt reports being told he had HH set up from ortho. Per chart review by this CPR INSTRUCTOR, I could not find any mention of HH need in ortho paperwork from PA or surgeon. CPR INSTRUCTOR communicated this to pt and family. CPR INSTRUCTOR reported that pt is currently ambulating at too high of a level to be considered home bound and therefore does not qualify for HH services. Family reports feeling confident they can take him to OP appointments and are trying to move up his OP PT appt to sooner. CPR INSTRUCTOR informed pt and family that if mobility decreases, he can reach out to PCP to coordinate HH care. CPR INSTRUCTOR gave family names of two HH agencies that services [facility]. Family appreciative. Pt and family denied any other CM needs at this time. Upon further investigation, ortho coordinator Shanel notified CM team of pt dc concerns prior to surgery. She reported that pt was interested in SNF and pt was going to reach out to us or dtr was going to reach out to this team prior to surgery. This CPR INSTRUCTOR cannot find any documented record of contact with either pt or dtr prior to surgery. Plan: pt to dc home today with family support and OP PT follow up. transport with family in POV. CM team will continue to follow closely. JOSE M Quiros Discharge Planning/Care Management CM Discharge Assessment Start: 05/30/23 15:14 Freq: Status: Active Protocol: Document 05/30/23 15:14 SL (Rec: 05/30/23 15:16 SL [id number]) Discharge Planning Assessment Assigned Publisher Assistant JOSE M Santos/Assigned Designee Name sister Cai Contact Information [phone] Advance Directives? No History Provided By Patient,Family Member,Medical Record Prior Living Arrangements House Comment will have family assist after DC Household Members none Type of transporation used prior to Drives own vehicle admit Comment family to assist with transporting at dc Independent with ADL's Yes Is patient alert and oriented? Yes Needs Assistance With Home Chores / Shopping DME Already Rented / Owned Bath Bench,FWW / Walker,Cane Barriers to Discharge No Discharge Plan Home Transportation Arrangement family in POV Referrals Initiated None needed Whiteboard Updated in Patient Room with Yes name and ext. # of Publisher Assistant Review Status In Process Next Review Type Continued Stay Review Pre-Anesthesia Assessment Start: 05/21/23 12:41 Freq: Status: Discharge Protocol: Document 05/21/23 12:41 CAB (Rec: 05/21/23 13:46 CAB [id number]) Pre-Anesthesia Assessment Preferred Name Manan Patient Information Reviewed Via Phone Assessment Assessment Completed With Patient Diagnostic Results BMP/CMP,CBC,EKG,Urinalysis Comment Labs/EKG @ [facility] 05/08/23 Primary Care Provider Rashida Archer Seen Specialist in Last 12 Months Yes Specialist Seen Orthopedist Primary Language [place]er Ventilation Worker Required No Height 182.88 cm Weight 113.398 kg Body Mass Index (BMI) 33.9 Hearing Ability Normal Visual Assist Magnifying Glass Dentition Type Teeth, Natural Present,Partial - Lower Barriers to Learning None Hx Anesthesia Reactions No Hx Family Anesthesia Reaction No Hx Malignant Hyperthermia No Hx Blood Transfusions No Anesthesia Review Requested No Victims Advocate Clerk/Specialist Yes: Pt will see if brother or sister can stay to help w/ care at DC alcohol intake former Smoking Status Former smoker how long ago did patient quit smoking Quit early ' Substance Use Type marijuana Comment Advised not to smoke marijuana 24 hours prior to surgery Pain Present Pain Reported Musculoskeletal Symptoms Abnormal Gait,Difficulty Walking,Joint Pain History of Falling (Recent or History of No ) Patient is completely paralyzed or No completely immobile Mental Status Oriented to own ability Is patient on oxygen? No Does patient have PEREZ/SOB No Hx Sleep Apnea No Currently Taking a Beta Carleen No Can You Climb a Flight of Stairs Without Yes SOB Hx Chest Pain No Hx SOB No Hx Syncope or Dizziness No Anti-Coagulant Therapy No Has a Equal Employment Opportunity Officer No Cardiac Testing No Hx Pacemaker/ICD No Pacemaker Rep Required? No Cardiac Clearance Received Not Applicable Diet Type At Home Regular Dysphagia No Gastrointestinal Symptoms None Chronic UTI No Urinary Catheter Present No Hx Urinary Self Catheterization No Diabetes No HgbA1C 5.2 Date 05/08/23 Hx Drug Resistant Organism No Presence of External or Internal Medical No Devices Received a COVID vaccine? Yes Received all doses? No Marital Status / Lives With none Current Living Arrangements House Number of Floors (Floors) One Floor Support System Sibling(s) Comment Pt will check with brother or sister for care at DC Does the Patient Have Assistance After No Surgery Patient Discharge Plan Description Return Home Comment Pt advised overnight length of stay per surgeon Feels Safe in Current Environment Yes Been Physically Hurt or Threatened By a No Person in Current Environment Do you have thoughts of harming yourself None or others? Are you currently considering suicide? No Do you have a plan to hurt yourself or No Plan others? Do You Have Any Spiritual Beliefs That No May Affect Your HC Choices? Do You Have Any Cultural Practices That No May Affect Your HC Choices? Who Can We Speak to About Patient's Care Family, friends Identifying Code for Release of Patient Declines to issue Information Health Care Proxy/Next of Kin Melo Barrientos (sister) Health Care Proxy Emergency Contact Name Rubin Arce (daughter) Emergency Contact Phone Number Pt to update dos Advance Directives? No Power of Anthropology And Archeology Instructor No PAC Instructions Durable medical equipment, Medications to take/avoid, Nasal antibiotic,No ETOH/ petroleum product on skin DOS, NPO,Pre-surgical wash,Sensory aids,Sturdy shoes/comfortable clothes,Do not bring valuables and remove jewelry
--- NOTE | 2023-05-30 17:15 | PM.DS.1 ---
History of Present Illness History of Present Illness Date Patient Seen: 05/30/23 Time Patient Seen: 08:15 Chief complaint: OPB Narrative: The patient has had progressively worsening right hip pain with radiographic changes consistent with arthritis. Non-operative management has failed and the patient has requested total hip replacement. The risks, benefits and alternatives to surgery were discussed with the patient prior to proceeding. Risks discussed included, but were not limited to, failure to relieve pain, leg length discrepancy, dislocation, stiffness, infection, nerve damage, deep venous thrombosis, pulmonary embolism, stroke, coma, heart attack, permanent paralysis and , as well as the potential need for eventual revision of the prosthetic. Surgeon: Kaye Morse Director Of Blood: Vinayak Mock Anesthesia Type: General and Spinal Operative Notes Findings: Severe right hip osteoarthritis, adequate stability, adequate bone Closure Type: primary Specimen(s): none sent Prosthetic devices, grafts, tissues, transplants, or devices: Morse and Nephew R3 58 mm, neutral poly liner, polar size 4 standard offset with collar, 36 x +0 cobalt head,one 6.5 mm screw Estimated Blood Loss (mL): 250 Blood products transfused: none He is found lying in bed today comfortably. He had to be catheterization last night at 2300 but this morning was able to void twice. Pain is controlled with oral medications. Feels he is ready to go home. Discharge Providers Provider Date of admission: 05/29/2023 Discharge Date: 05/30/23 Primary care physician: Rashida Archer PA-C Consults: 05/21/23 13:46 Consult to Mechanic General Operational Test Routine Comment: Pt working on home care at [place], lives alone 05/29/23 06:00 Consult to Anesthesiology Routine Comment: Consulting Provider: Anesthesiologist Reason for consultation: Regional block for post operative pain control Has provider been notified: No 05/29/23 17:10 Consult to Discharge Planning Routine Comment: Consult to Occupational Therapy Evaluate & Treat Comment: Physician Instructions: Evaluate and treat Consult to Physical Therapy Evaluate & Treat Comment: Physician Instructions: post op ARIA protocol 05/30/23 10:51 Consult to Physical Therapy Evaluate & Treat Comment: Physician Instructions: walker for home use Discharge provider: Wilmer Barksdale PA-C Summary Hospital Course Discharge Diagnosis: Status post right hip total arthroplasty Hospital Course: Pain management. Physical therapy. Status at Discharge Cognitive/behavioral status at discharge: oriented Functional status at discharge: uses cane/walker Overall status at discharge: patient is back to baseline Time Spent with Patient Time spent: Less than 30 minutes Exam Vital Signs (past 8 hours): - 05/30/23 12:30 Blood Pressure 117/68 Oxygen Delivery Method Room Air Oxygen Flow Rate 0 Narrative Exam Narrative: Dressing appears to be well-maintained. No signs of discharge. No pain to compression along posterior right thigh or right calf. Sensation grossly intact to the right lower leg. Able to dorsiflex and plantar flex against resistance at the right ankle. Objective Labs 05/30/23 04:56 Labs: Laboratory Results - last 24 hr 05/30/23 04:56 Hgb 12.7 L Hct 37.8 L PFSH Medical History Depression Osteoarthritis GERD (gastroesophageal reflux disease) HLD (hyperlipidemia) Surgical History (Updated 05/21/23 @ 13:07 by Sarah Tanner RN) Hx of tonsillectomy Social History household members: none Smoking Status: Former smoker alcohol intake: former Discharge Assessment & Plan Assessment and Plan Assessment: Status post right hip arthroplasty Plan of Treatment: The patient will be maintained on a standard total hip replacement protocol with weight bearing as tolerated and posterior hip precautions. The patient will receive Aspirin and sequential compression devices for DVT prophylaxis. The patient will be discharged home when safe for the home environment. Postop postoperative prescriptions have already been prescribed. May take oxycodone 5 mg every 4 hours as needed for pain. May take meloxicam 7.5 mg 1 tablet bid daily for pain inflammation. Start physical therapy outpatient in 3-7 days. Follow up with [facility] in 2 weeks for wound check. Discharge Plan Discharge Plan Patient Disposition: Home Provider Discharge Comment: DC pending PT approval Discharge orders & Medications Discharge Orders: Discharge (Order); Ordered 05/30/23 Ordered By: Wilmer Barksdale Prescriptions: Continued fluoxetine 10 mg Tablet 10 mg PO DAILY simvastatin 40 mg Tablet 40 mg PO DAILY meloxicam 7.5 mg Tablet 7.5 mg PO DAILY Medication counseling provided by Pharmacist: Yes Follow up/Referrals: Rashida Archer PA-C [Primary Care Provider] - Diet/Activity/Treatments Diet: Diet as Tolerated Activity: Ambulate as tolerated Cold/Heat Therapy: Ice over surgical site as needed for pain. Skin/Wound/Dressing Care Report to your healthcare provider any signs of infection, such as:: chills, fever, night sweats, unusual drainage and unusual redness Dressing: May shower. Keep dressing as dry as possible. If dressing becomes wet or dirty, remove and replace with clean, dry gauze. Visit Report/Discharge Packet Instructions: DI for Hip Replacement Stand Alone Forms: Patient Portal/API Discharge Data Primary Care Provider: Rashida Archer Attending Provider: Kaye Morse VTE Deep Vein Thrombosis/Pulmonary Embolism Present on Admission: No
== END 2023-05-30 14:55 | disposition home or self-care (01) ==
LOC: OR 11:16 → AC 11:16
PROVIDERS: PCP Physician Assistant; Referring Provider Orthopaedic Surgery; Visit Provider Orthopaedic Surgery
PROC: 0SR90JZ Replacement of Right Hip Joint with Synthetic Substitute, Open Approach (ICD-10-PCS; CPT 27130; principal; 2023-05-29 13:45)
DX: M16.11 Unilateral primary osteoarthritis, right hip (principal); M79.7 Fibromyalgia; E78.5 Hyperlipidemia, unspecified; E66.9 Obesity, unspecified; Z68.33 Body mass index [BMI] 33.0-33.9, adult; Z87.891 Personal history of nicotine dependence
CPT/HCPCS: 27130; 36415; 72170; 73502; 85014; 85018; 97116; 97161; 97165; 97530; 97535; C1776; C9290; J0171; J0690; J1100; J2405; J2704; J3010